=== PATIENT | male | born 1985 | race Caucasian/White ===

== ENCOUNTER → 2025-03-24 | Outpatient (CLI) | payer OTHER, SELFPAY ==
--- NOTE | 2025-03-24 07:15 | XR_ITS ---
Examination: Ultrasound soft tissue extremity right groin. TECHNIQUE: Grayscale sonographic images soft tissue right groin Date and time: March 24, 2025, 0714 hours INDICATIONS: Right groin pain and lump noticed beginning 3 weeks ago FINDINGS: Hernia in the right groin 2.0 x 0.8 x 1.6 cm which may contain bowel IMPRESSION: Consider CT pelvis without contrast follow-up to confirm right inguinal hernia containing bowel
== END | disposition home or self-care (01) ==
PROVIDERS: PCP Family Medicine; Referring Provider Nurse Practitioner Family; Visit Provider Nurse Practitioner Family
DX: R10.31 Right lower quadrant pain (principal)
CPT/HCPCS: 76882